=== PATIENT | male | born 1950 | race Caucasian/White ===

== ENCOUNTER 2025-08-09 15:49 | Emergency (ER) | payer MEDICARE, BC | END 2025-08-09 17:36 | disposition home or self-care (01) | LOC: ERS 15:49 | DX: S06.0X1A Concussion with loss of consciousness of 30 minutes or less, initial encounter (principal); E03.9 Hypothyroidism, unspecified; E78.00 Pure hypercholesterolemia, unspecified; R29.700 NIHSS score 0; Z79.890 Hormone replacement therapy; Z79.899 Other long term (current) drug therapy; V80.010A Animal-rider injured by fall from or being thrown from horse in noncollision accident, initial encounter | CPT/HCPCS: 99284 ==